=== PATIENT | male | born 1960 | race Two or more races ===

== ENCOUNTER → 2017-12-09 | Outpatient (CLI) | payer OTHER | END | disposition home or self-care (01) | LOC: EKG 14:59 | DX: I10 Essential (primary) hypertension (principal) ==

== ENCOUNTER → 2017-12-29 | Day surgery (SDC) | payer OTHER ==
[~2017-12-29] MED LIST: CLONAZEPAM1 MG PO; TOPROL XL50 M1 PO
== END | disposition home or self-care (01) ==
LOC: CIR.AMB 05:18
DX: S64.8X1A Injury of other nerves at wrist and hand level of right arm, initial encounter (principal)